=== PATIENT | male | born 1960 | race Caucasian/White ===

== ENCOUNTER 2017-02-02 17:07 | Emergency (ER) | payer SELFPAY ==
[~2017-02-02] VITALS: Ht 177.8 cm; Wt 89.0 kg
[2017-02-02 17:21] VITALS: BP 163/103
== END 2017-02-02 18:58 | disposition left against medical advice (07) ==
LOC: EME 17:07
DX: S63.502A Unspecified sprain of left wrist, initial encounter (principal); V80.010A Animal-rider injured by fall from or being thrown from horse in noncollision accident, initial encounter; Y93.52 Activity, horseback riding; F17.200 Nicotine dependence, unspecified, uncomplicated
CPT/HCPCS: 73110; 99281; 99282